=== PATIENT | male | born 1985 | race Caucasian/White ===

== ENCOUNTER 2021-06-30 03:30 | Emergency (ER) | payer MEDICAID ==
[~2021-06-30] VITALS: Ht 167.6 cm; Wt 80.3 kg
[2021-06-30 03:39] VITALS: BP 135/106
[2021-06-30] MEDS ORDERED: LIDOCAINE MPF 1% 10 MG/ML VIAL INJ ONE (04:05)
[2021-06-30 05:06] VITALS: BP 132/72
== END 2021-06-30 04:49 | disposition home or self-care (01) ==
LOC: MED 03:30
DX: S61.211A Laceration without foreign body of left index finger without damage to nail, initial encounter (principal); W26.0XXA Contact with knife, initial encounter; Y93.89 Activity, other specified; Y92.89 Other specified places as the place of occurrence of the external cause; Y99.8 Other external cause status
CPT/HCPCS: 12001; 99282; J2001; 90715